=== PATIENT | male | born 1990 | race Caucasian/White ===

== ENCOUNTER 2016-09-20 01:14 | Emergency (ER) | payer SELFPAY ==
[~2016-09-20] VITALS: Ht 185.4 cm; Wt 111.2 kg
[2016-09-20] MEDS ORDERED: ALBUTEROL/IPRATROPIUM 2.5MG/0.5MG, 3 ML NPPB ONE (02:00)
[2016-09-20 02:58] VITALS: BP 130/78
== END 2016-09-20 03:03 | disposition home or self-care (01) ==
LOC: ED 02:53
DX: J45.41 Moderate persistent asthma with (acute) exacerbation (principal)
CPT/HCPCS: 71020; 93005; 94640; 99284; J7512; J7620

== ENCOUNTER 2017-08-28 13:05 | Emergency (ER) | payer SELFPAY ==
[~2017-08-28] VITALS: Ht 185.4 cm; Wt 102.1 kg
[2017-08-28] MEDS ORDERED: ONDANSETRON ODT 4 MG PO ONE (13:30)
[2017-08-28] MEDS ORDERED: HYDROmorphone 1 MG/ML, 1ML IVPush PRN (13:30)
[2017-08-28] MEDS ORDERED: SODIUM CHLORIDE FLUSH 10ML SYR IVF ONE (13:30)
[2017-08-28] MEDS ORDERED: ONDANSETRON ODT 4 MG ONE (13:34)
[2017-08-28] MEDS ORDERED: HYDROmorphone 2 MG/ML, 1ML ONE ×2 (13:49→17:01)
[2017-08-28] MEDS ORDERED: ALBU90AE INH (14:21)
[2017-08-28 16:20] LABS: MICROSCOPIC AUTO
[2017-08-28 16:24] LABS: CULTURE INDICATED? NO
[2017-08-28 16:55] VITALS: BP 126/86
== END 2017-08-28 17:15 | disposition home or self-care (01) ==
LOC: ED 15:04
DX: N20.2 Calculus of kidney with calculus of ureter (principal); R31.9 Hematuria, unspecified; J45.909 Unspecified asthma, uncomplicated
CPT/HCPCS: 74176; 81001; 96374; 99285; J1170; Q0162

== ENCOUNTER 2017-11-19 03:02 | Emergency (ER) | payer SELFPAY ==
[~2017-11-19] VITALS: Ht 182.9 cm; Wt 91.7 kg
[~2017-11-19 03:02] MED LIST: ALBU90AE INH
[2017-11-19] MEDS ORDERED: METOCLOPRAMIDE 5 MG/ML, 2ML IVPush ONE (03:30)
[2017-11-19] MEDS ORDERED: KETOROLAC 30 MG/1 ML IVPush ONE (03:30)
[2017-11-19 03:31] LABS: BASOPHILS # (AUTO) 0.08 x10^3/uL (0-0.1); BASOPHILS % (AUTO) 1 % (0-1); EOSINOPHILS # (AUTO) 1.13 x10^3/uL (0-0.4); EOSINOPHILS % (AUTO) 12 % (1-7); LYMPHOCYTES # (AUTO) 2.65 x10^3/uL (1-3.4); LYMPHOCYTES % (AUTO) 28 % (22-44); MD NO; MEAN CORPUSCULAR HEMOGLOBIN 30.5 pg (27.5-34.5); MEAN CORPUSCULAR HGB CONC 33.4 g/dL (33.2-36.2); MEAN CORPUSCULAR VOLUME 91.3 fL (81-97); MEAN PLATELET VOLUME 9.6 fL (7.4-10.4); MONOCYTES # (AUTO) 0.69 x10^3/uL (0.2-0.8); MONOCYTES % (AUTO) 7 % (2-9); NEUTROPHILS # (AUTO) 4.78 x10^3/uL (1.8-6.8); NEUTROPHILS % (AUTO) 51 % (42-75); PLATELET COUNT 238 x10^3/uL (130-400); RED BLOOD COUNT 5.16 x10^6/uL (4.38-5.82)
[2017-11-19] MEDS ORDERED: METOCLOPRAMIDE 5 MG/ML, 2ML ONE (03:32)
[2017-11-19] MEDS ORDERED: KETOROLAC 30 MG/1 ML ONE (03:32)
[2017-11-19 03:43] LABS: ALANINE AMINOTRANSFERASE 15 U/L (12-78); ALBUMIN 4.1 g/dL (3.4-5.0); ANION GAP 10 mmol/L (5-15); CALCIUM 9.2 mg/dL (8.5-10.1); CHLORIDE 105 mmol/L (98-107); CREATININE 1.16 mg/dL (0.7-1.3)
[2017-11-19 03:46] LABS: ALKALINE PHOSPHATASE 66 U/L (45-117); BILIRUBIN,TOTAL 0.9 mg/dL (0.2-1.0); TOTAL PROTEIN 7.7 g/dL (6.4-8.2)
[2017-11-19] MEDS ORDERED: MORPHINE SULFATE 4 MG/ML, 1ML ONE (05:14)
[2017-11-19 05:29] LABS: CULTURE INDICATED? NO; MICROSCOPIC NOT IND
[2017-11-19] MEDS ORDERED: MORPHINE SULFATE 4 MG/ML, 1ML IVPush PRN (05:30)
[2017-11-19 05:34] VITALS: BP 134/89
== END 2017-11-19 05:55 | disposition home or self-care (01) ==
LOC: ED 04:02
DX: N23 Unspecified renal colic (principal); N20.0 Calculus of kidney; J45.909 Unspecified asthma, uncomplicated; Z87.891 Personal history of nicotine dependence
CPT/HCPCS: 36415; 76770; 80053; 81003; 83690; 85025; 96374; 96375; 99285; J1885; J2765

== ENCOUNTER 2018-01-15 04:02 | Emergency (ER) | payer MEDICAID ==
[~2018-01-15] VITALS: Ht 185.4 cm; Wt 87.3 kg
[2018-01-15 04:07] VITALS: BP 128/90
[2018-01-15] MEDS ORDERED: PROPRANOLOL (04:11)
[2018-01-15] MEDS ORDERED: ADVAIR (04:11)
[2018-01-15] MEDS ORDERED: ALBUTEROL/IPRATROPIUM 2.5MG/0.5MG, 3 ML NPPB ONE (04:30)
[2018-01-15] MEDS ORDERED: ALBUTEROL/IPRATROPIUM 2.5MG/0.5MG, 3 ML ONE (04:33)
== END 2018-01-15 05:22 | disposition home or self-care (01) ==
LOC: ED 05:15
DX: J45.20 Mild intermittent asthma, uncomplicated (principal); Z76.0 Encounter for issue of repeat prescription; Z87.891 Personal history of nicotine dependence
CPT/HCPCS: 71045; 94640; 99283; J7620

== ENCOUNTER 2018-09-30 09:10 | Emergency (ER) | payer MEDICAID ==
[~2018-09-30] VITALS: Ht 185.4 cm; Wt 98.8 kg
[~2018-09-30 09:10] MED LIST changes: +ADVAIR; +PROPRANOLOL
[2018-09-30 09:15] VITALS: BP 143/89
== END 2018-09-30 09:47 | disposition home or self-care (01) ==
LOC: ED 09:35
DX: R11.0 Nausea (principal); Z76.0 Encounter for issue of repeat prescription
CPT/HCPCS: 99283

== ENCOUNTER 2020-03-22 23:07 | Emergency (ER) | payer MEDICAID ==
[~2020-03-22] VITALS: Ht 188 cm; Wt 108.0 kg
--- NOTE | 2020-03-23 00:07 | NUR ---
Patient comes in with complaints of feeling more anxious then nomal after taking LSD. Patient states that he takes LSD on a regular basis also has a history of aniexty and takes klonopin. Patient took "3/4 tabe about 40 mins before coming here" States that it is starting to help. Patient resting comforably at this time. Family at bedside, VSS.
[2020-03-23 01:11] VITALS: BP 124/67
--- NOTE | 2020-03-23 01:35 | NUR ---
Patient given discharge instructions and they have confirmed that they understand the instructions. Patient ambulatory with steady gait. nad, denies additional questions or needs at this time, no personal belongings left in room after dc.
== END 2020-03-23 01:36 | disposition home or self-care (01) ==
LOC: ED 23:37
DX: F16.129 Hallucinogen abuse with intoxication, unspecified (principal)
CPT/HCPCS: 99283